=== PATIENT | female | born 2005 | race Caucasian/White ===

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

== ENCOUNTER → 2024-02-11 | Outpatient (CLI) | payer OTHER, SELFPAY ==
[2024-02-11 12:06] LABS: Basophil# 0.03 X10^3/uL; Basophil% 0.5 % (0-1); Eosinophil# 0.06 X10^3/uL; Eosinophils% 0.9 % (0-5); Hematocrit 45.2 % (37-47); Hemoglobin 14.7 g/dL (12.0-15.0); Lymphocyte % 25.3 % (19-41); Mean Corp Hgb Conc 32.5 g/dL (32-36); Mean Corpuscular Hgb 29.5 pg (27.0-32.0); Mean Corpuscular Volume 90.8 fL (81-99); Mean Platelet Vol. 9.8 fl (6.2-12.0); Monocyte% 9.5 % (0-10); NRBC Flagged by Analyzer 0 % (0-5); Neutrophil % 63.3 % (47-70); Platelet Count 329 K/mm3 (150-450); RBC Distribution Width CV 13.2 % (11.6-14.6); Red Blood Count 4.98 M/mm3 (4.2-5.4); White Blood Count 6.3 K/mm3 (4.4-11.0)
[2024-02-11 12:37] LABS: ALB/GLOB Ratio 0.8 RATIO (0.9-2.4); AST(SGOT) 19 U/L (15-37); Alanine Aminotransfer ALT/SGPT 21 U/L (13-56); Albumin, Serum 3.6 g/dL (3.2-5.0); Alkaline Phosphatase 132 U/L (45-117); Anion Gap 3 (5-15); BUN 10 mg/dL (7-18); BUN/Creat Ratio 13.4 RATIO (10-20); Calcium,Total 9.1 mg/dL (8.5-10.1); Chloride 112 mmol/L (98-107); Creatinine, Serum 0.75 mg/dL (0.55-1.02); EST Glomerular Filtration Rate 105 mL/min (>60); Est Glom Filt Rate - Afr Amer 128 mL/min (>60); Globulin 4.3 g/dL (2.2-4.2); Glucose 102 mg/dL (74-106); Luteinizing Hormone 13.3 mIU/mL; Potassium 4.2 mmol/L (3.5-5.1); Protein, Total 7.9 g/dL (6.4-8.2); Sodium Level 142 mmol/L (136-145); Thyroid Stim Hormone (TSH) 1.28 uIU/mL (0.358-3.74)
[2024-02-11 13:41] LABS: hCG Titer Quant., Serum < 1 mIU/mL (1-3)
== END | disposition home or self-care (01) ==
LOC: BIMLAB 11:32
PROVIDERS: PCP Internal Medicine; Referring Provider Internal Medicine; Visit Provider Internal Medicine
DX: N91.2 Amenorrhea, unspecified (principal)
CPT/HCPCS: 36415; 80053; 83001; 83002; 84146; 84403; 84443; 84702; 84703; 85025

== ENCOUNTER → 2024-03-31 | Outpatient (CLI) | payer OTHER, SELFPAY | END | disposition home or self-care (01) | PROVIDERS: PCP Internal Medicine; Referring Provider Nurse Practitioner Women's Health; Visit Provider Nurse Practitioner Women's Health | DX: N91.2 Amenorrhea, unspecified (principal) | CPT/HCPCS: 87491; 87591 ==

== ENCOUNTER → 2024-04-10 | Outpatient (CLI) | payer OTHER, SELFPAY ==
[2024-04-10 13:00] LABS: Cholesterol 183 mg/dL (200); High Density Lipoprotein 36 mg/dL; Triglycerides 175 mg/dL; Very Low Density Lipoprotein 35 mg/dL (5-40)
== END | disposition home or self-care (01) ==
LOC: LAB 11:47
PROVIDERS: PCP Internal Medicine; Referring Provider Nurse Practitioner Women's Health; Visit Provider Nurse Practitioner Women's Health
DX: N91.5 Oligomenorrhea, unspecified (principal)
CPT/HCPCS: 36415; 80061; 83036

== ENCOUNTER 2024-11-29 03:44 | Emergency (ER) | payer OTHER, SELFPAY ==
[2024-11-29 03:44] VITALS: BP 137/77; PULSE 89; RESP 18; TEMP 36.6; O2SAT 99; BMI 42.3
[2024-11-29 03:59] LABS: Absolute Lymphocyte Count 2.38 X10^3/uL (0.83-4.51); Absolute Neutrophil Count 10.2 X10^3/uL (2.0-7.7); Basophil# 0.04 X10^3/uL; Basophil% 0.3 % (0-1); Eosinophil# 0.13 X10^3/uL; Eosinophils% 0.9 % (0-5); Hematocrit 40.6 % (37-47); Hemoglobin 13.6 g/dL (12.0-15.0); Lymphocyte # 2.38 X10^3/ul (0.83-4.51); Lymphocyte % 17.3 % (19-41); Mean Corp Hgb Conc 33.5 g/dL (32-36); Mean Corpuscular Hgb 29.8 pg (27.0-32.0); Mean Corpuscular Volume 88.8 fL (81-99); Mean Platelet Vol. 9.8 fl (6.2-12.0); Monocyte# 0.98 X10^3/uL; Monocyte% 7.1 % (0-10); NRBC Flagged by Analyzer 0 % (0-5); Neutrophil # 10.17 X10^3/uL (2.7-7.7); Platelet Count 321 K/mm3 (150-450); RBC Distribution Width CV 12.9 % (11.6-14.6); Red Blood Count 4.57 M/mm3 (4.2-5.4); White Blood Count 13.8 K/mm3 (4.4-11.0)
[2024-11-29 04:22] LABS: ALB/GLOB Ratio 0.8 RATIO (0.9-2.4); AST(SGOT) 32 U/L (15-37); Alanine Aminotransfer ALT/SGPT 30 U/L (13-56); Albumin, Serum 3.2 g/dL (3.2-5.0); Alkaline Phosphatase 111 U/L (45-117); Anion Gap 5 (5-15); BUN 11 mg/dL (7-18); BUN/Creat Ratio 12.2 RATIO (10-20); Calcium,Total 9.3 mg/dL (8.5-10.1); Chloride 108 mmol/L (98-107); EST Glomerular Filtration Rate 84 mL/min (>60); Est Glom Filt Rate - Afr Amer 102 mL/min (>60); Estimated Creatinine Clearance 126.43 ml/min; Glucose 118 mg/dL (74-106); Lipase 39 U/L (13-75); Potassium 3.7 mmol/L (3.5-5.1); Protein, Total 7.2 g/dL (6.4-8.2); Sodium Level 139 mmol/L (136-145)
[2024-11-29 04:38] LABS: Mucous, Urine 0 SEEN /hpf (<or=2+); Red Blood Cells-Urine 0 SEEN /hpf (0-5); White Blood Cells 0 SEEN /hpf (0-5)
[2024-11-29] MEDS: Ondansetron 4 MG/2 ML Vial IV (04:38)
[2024-11-29] MEDS: Ketorolac 15 MG/ML Vial IV (04:39)
[2024-11-29] MEDS: 0.9% Normal Saline (1000mL) 1,000 ML 999 ML IV (04:39)
[2024-11-29 05:00] LABS: Color, Urine Yellow (Yellow); Glucose, Dipstick Normal (Normal); Ketone-Dipstick Negative (Negative); Leukocyte Esterase-Dipstick Negative /ul (Negative); Nitrite-Dipstick Negative (Negative); Occult Blood-Urine Negative /ul (Negative); Protein-Dipstick 15 mg/dl (Negative); Specific Gravity, Urine 1.025 (1.002-1.030); Urine Bilirubin Dipstick Negative (Negative); Urine Clarity Clear (Clear); Urine Urobilinogen 4 mg/dl (Normal)
[2024-11-29 05:07] LABS: Bacteria 2+ /hpf (None Seen); Internal QC Validated? YES +Cl - CLEAR BKGD; Pregnancy, Urine Negative Negative; Squamous Epithelial Cells - UA 0-5 SEEN /hpf (5-10)
--- NOTE | 2024-11-29 05:10 | EDS_ITS ---
HPI HPI - GI History of Present Illness Chief Complaint: Abd Pain Informant: patient and parent Narrative Narrative: Patient is a 19-year-old female with history of irregular menstrual cycles and possible polycystic ovarian syndrome presenting with sudden onset of abdominal pain, nausea and vomiting. Patient is woke up from sleep around 2 AM. Pain is in her epigastric region. She denies any radiation. Denies any aggravating or alleviating factors. Notes that she had pepperoni pretzel with isabellaa for dinner around 6 PM. States she felt okay when she went to bed last night. She had normal bowel movement yesterday. She has similar episode 1 week ago with similar presentation of sudden onset of pain that woke her up from sleep. That night she had cheesy bread and potato skins. Mother is concerned for gallstones as patient's brother had his gallbladder removed at age 15 and ever the family said to have the gallbladders removed. No report of any fevers. No other complaints or concerns reported at this time. Patient suspicion. About a month ago. She does not report any concern for . No history of any abdominal surgeries. [facility] Medical History Wears contact lenses Migraine headache Asthma Non-smoker Knee pain Home Medications ?Medication ?Instructions ?Recorded ?Last Taken ?Type norgestimate 0.25 mg-ethinyl 1 tab PO QDAY #84 tabs 06/30/24 Unknown Rx estradiol 35 mcg tablet (Sprintec (28)) Allergy/AdvReac Type Severity Reaction Status Date / Time No Known Allergies Allergy Verified 11/29/24 03:45 Family History Mother High cholesterol Brother Asthma Allergies Severe allergy Grandmother Osteoporosis Heart disease Hypertension Myocardial infarction Colon cancer Amyloidosis Multiple myeloma Grandfather Heart disease High cholesterol Kidney disease CVA (cerebral vascular accident) Paraganglioma Cancer of cranial nerves Skin cancer Grandmother Breast cancer Cancer skin Osteoporosis Surgical History H/O right knee surgery Hx of tympanostomy tubes History of tonsillectomy and adenoidectomy History of repair of anterior cruciate ligament of left knee ear drum reconstruction Social History adopted: No household members: family current occupational status: employed 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[employer] history of recent travel: No Smoking Status: Never smoker Electronic Cigarette Use: not used alcohol intake: never substance use type: does not use what type of physical activity do you participate in: walking frequency: 1-2 times per week seatbelt use: always do you feel safe at home: Yes ROS ROS ED Constitutional Constitutional ED: Denies chills or fever(s) Respiratory/Chest Respiratory/Chest: Denies cough or dyspnea Gastrointestinal Gastrointestinal: Reports abdominal pain, nausea and vomiting; Denies constipation or diarrhea Genitourinary Genitourinary ED: Denies dysuria or hematuria Musculoskeletal Musculoskeletal: Denies arthralgias, back pain or myalgias Integumentary Denies rash Hematologic/Lymphatic Hematologic/Lymphatic: Denies easy bleeding or easy bruising EXAM Physical Exam Const Vital Signs: 11/29/24 03:44 11/29/24 05:44 11/29/24 07:15 Temperature 98 F Temperature Source Oral Pulse Rate 89 74 75 Respiratory Rate 18 18 24 H Blood Pressure 137/77 H 104/62 105/64 Blood Pressure Mean 97 76 77 Pulse Ox 99 97 100 Oxygen Delivery Method Room Air Room Air Room Air Positive well nourished and well developed General Appearance ED: well developed and NAD; Negative for pallor HEENT Reports moist mucous membranes Neck supple Resp normal respiratory effort and clear to auscultation bilaterally Cardio regular rhythm GI Inspection: Negative for abdominal distention Auscultation: normoactive bowel sounds Palpation: soft and tender epigastric, LUQ and Wilder's sign; Negative for guarding or rigid Back/Spine no CVA tenderness Neuro Sensorium / Orientation: alert Motor Exam: Negative for general weakness Psych mental status grossly normal and thought process normal Mood & Affect: tearful Skin no wounds General Skin Exam: Negative for jaundice or pallor MDM MDM MDM Narrative Medical decision making narrative: Patient is evaluated for sudden onset of epigastric/right upper quadrant abdominal pain with associated nausea and vomiting. Upon arrival patient is normal vital signs. She appears nontoxic but uncomfortable. Patient given IV fluids, Toradol and Zofran for symptoms. She does have a positive Wilder sign. CBC shows a leukocytosis with white blood cell count of 13.8 but otherwise normal. CMP largely normal as well as lipase. Urinalysis not consistent with infection or other acute process. test is negative. Bedside ultrasound from a myself does show gallstones but do not appreciate pericholecystic fluid or gallbladder wall thickening. She does have a positive sonographic Wilder sign for me. Will order formal right upper quadrant ultrasound. Differential includes biliary colic, acute cholecystitis and gastritis. Given that she has normal bilirubin and normal liver enzymes lower suspicion for choledocholithiasis. Patient presented to oncoming physician pending formal ultrasound results and repeat evaluation. Lab Data Attestation: I reviewed the patient's lab results. Labs: Laboratory Results - last 24 hr 11/29/24 11/29/24 03:54 04:34 WBC 13.8 H RBC 4.57 Hgb 13.6 Hct 40.6 MCV 88.8 MCH 29.8 MCHC 33.5 RDW Std Deviation 42.0 RDW Coeff of Maggi 12.9 Plt Count 321 MPV 9.8 Immature Gran % (Auto) 0.400 Neut % (Auto) 74.0 H Lymph % (Auto) 17.3 L [place] % (Auto) 7.1 Eos % (Auto) 0.9 Baso % (Auto) 0.3 Absolute Neuts (auto) 10.2 H Absolute Lymphs (auto) 2.38 Nucleated RBC % 0 Sodium 139 Potassium 3.7 Chloride 108 H Carbon Dioxide 26.0 Anion Gap 5 BUN 11 Creatinine 0.90 Estim Creat Clear Calc 126.43 Est GFR (MDRD) Af Amer 102 Est GFR (MDRD) Non-Af 84 BUN/Creatinine Ratio 12.2 Glucose 118 H Calcium 9.3 Total Bilirubin 0.50 AST 32 ALT 30 Alkaline Phosphatase 111 Total Protein 7.2 Albumin 3.2 Globulin 4.0 Albumin/Globulin Ratio 0.8 L Lipase 39 Urine Color Yellow Urine Clarity Clear Urine pH 6.0 Ur Specific [place] 1.025 Urine Protein 15 H Urine Glucose (UA) Normal Urine Ketones Negative Urine Occult Blood Negative Urine Nitrite Negative Urine Bilirubin Negative Urine Urobilinogen 4 H Ur Leukocyte Esterase Negative Urine RBC 0 SEEN Urine WBC 0 SEEN Ur Squamous Epith Cells 0-5 SEEN Urine Bacteria 2+ Urine Mucus 0 SEEN Urine Test Negative Discharge Plan Triage Chief Complaint: Abd Pain ED Provider: Liliya Perez Dx/Rx/DC Orders Clinical Impression: Right upper quadrant abdominal pain, Nausea & vomiting Prescriptions: No Action norgestimate-ethinyl estradiol [Sprintec (28)] 0.25-35 mg-mcg tablet 1 tab PO QDAY Qty: 84 4RF Primary Care Provider: Teresa Liriano Referrals: Teresa Liriano MD [Primary Care Provider] - Print Language: Dominican
--- NOTE | 2024-11-29 05:10 | US_ITS ---
INDICATION: RUQ pain EXAMINATION: Ultrasound US Abdomen Limited (quadrant) TECHNIQUE: Malagon scale and color doppler imaging was performed of the right upper quadrant. COMPARISON: CT scan of the abdomen and pelvis of 06/24/2009 FINDINGS: LIVER: There is normal echotexture and borderline size measuring about 17 cm in length. The portal vein is patent with normal hepatopedal flow.. No focal hepatic lesion. There is no free fluid. GALLBLADDER AND BILIARY TREE: Multiple small gallstones are seen. Normal gallbladder wall measuring 2 mm. The proximal common bile duct measures 5 mm, which is within normal limits for the patient''s age. Sonographic Wilder''s sign: Negative. PANCREAS: No focal abnormality is demonstrated in the pancreas as visualized on this examination. No pancreatic ductal dilatation. RIGHT KIDNEY: The right kidney measures 12.6 cm. The renal cortex measures 1.8 cm. No evidence of hydronephrosis. US/Gallbladder IMPRESSION: Multiple small gallstones without evidence of gallbladder wall thickening or biliary dilatation. Electronically Signed: Lavelle Vilchis MD at 8:59 EST ,
[2024-11-29 05:44] VITALS: BP 104/62; PULSE 74; RESP 18; O2SAT 97
[2024-11-29 07:15] VITALS: BP 105/64; PULSE 75; RESP 24; O2SAT 100
[2024-11-29 08:51] VITALS: BP 106/66; PULSE 74; RESP 17; O2SAT 98
[2024-11-29 10:00] VITALS: BP 102/46; PULSE 70; RESP 12; O2SAT 99
[2024-11-29 10:31] VITALS: BP 95/54; PULSE 65; RESP 20; TEMP 36.6; O2SAT 99
== END 2024-11-29 10:38 | disposition home or self-care (01) ==
PROVIDERS: Emergency Provider Emergency Medicine; PCP Internal Medicine; Visit Provider Emergency Medicine
DX: R10.11 Right upper quadrant pain (principal); R11.2 Nausea with vomiting, unspecified
CPT/HCPCS: 76705; 80053; 81001; 81025; 83690; 85025; 96361; 96374; 96375; 99283; A4216; J2405

== ENCOUNTER 2024-12-15 09:54 | Day surgery (SDC) | payer OTHER, SELFPAY ==
[2024-12-15] VITALS (8 sets, daily range): BP systolic 86–120; BP diastolic 53–82; PULSE 73–91; RESP 16–22; TEMP 36.1–36.6; O2SAT 92–100; BMI 41.6
[2024-12-15 10:34] LABS: Internal QC Validated? YES +Cl - CLEAR BKGD; Pregnancy, Urine Negative Negative
--- NOTE | 2024-12-15 11:00 | IMM_PTH ---
PATIENT: AVEL HANNA LOC: EN U#:[id number] AGE/SX: 19/F ROOM: RE12/15/[address]: Dr. Juan Pablo Razo MD : 2005 BED: DIS: 12/15/2024 SPEC #: [id number] RECD: 12/16/24 09:02 STATUS: DEJAN REIvette #: [id number] NIDA: 12/15/24 11:[address]: Juan Pablo Razo DEPT: IMMUNOHISTOCHEMISTRY RECD BY: Conner Velasco ENTERED: 12/16/24 09:02 SP TYPE: IMMUNO OTHR DR: Dr. Teresa Liriano MD Tissues: A - Gastric mucous membrane Procedures: H Pylori (initial) PHYSICIAN & INSTITUTION [place] [address] SPECIMEN INFORMATION: Tissue Source: A- Antral biopsy Clinical Info: Epigastric abdominal pain, gallstones Specimen Number: [id number] CPT code: 31038 METHODOLOGY: Deparaffinized sections of prefer/formalin-fixed tissue or PAP/DQ stained slides are incubated with monoclonal/polyclonal antibodies/oligonucleotide probes. Localization is made via biotin free immunoperoxidase method. Appropriate controls are performed and reacted as expected. Results on target cell population are indicated in the following table: RESULTS: ANTIBODY / CLONE RESULT Block A H Pylori (polyclonal) negative These tests were developed and their performance characteristics determined by [facility]. They may not have been cleared or approved by the U.S. Food and Drug Administration. The FDA has determined that such clearance or approval is not necessary. The above immunohistochemical/dualISH markers are ordered and reviewed by the Pathologist. INTERPRETATION: A. Antrum, biopsy: Negative for Helicobacter pylori organisms. 12/17/2024
--- NOTE | 2024-12-15 11:00 | EGD_PTH ---
PATIENT: AVEL HANNA LOC: EN U#:[id number] AGE/SX: 19/F ROOM: RE12/15/[address]: Dr. Juan Pablo Razo MD : 2005 BED: DIS: 12/15/2024 SPEC #: [id number] RECD: 12/15/24 16:49 STATUS: DEJAN ALICIA #: [id number] NIDA: 12/15/24 11:[address]: Juan Pablo Razo DEPT: SURGICAL PATHOLOGY RECD BY: Alejandrina You ENTERED: 12/16/24 10:14 SP TYPE: EGD BIOPSY SARA DR: Dr. Teresa Liriano MD Tissues: A - Gastric mucous membrane B - COLON BIOPSY C - COLON BIOPSY Procedures: Surgery Specimen Level IV HEADER OPERATION: EGD with biopsy PRE-OP DIAGNOSIS: Epigastric abdominal pain, gallstones TISSUE SUBMITTED: A- Antral biopsy, B- Greater curvature biopsy, C- Prepyloric nodule biopsy MICROSCOPIC DIAGNOSIS A. Antrum, biopsy: Reactive gastropathy with focal chronic inflammation. See comment. B. Greater curvature, biopsy: Gastric mucosa with minimal chronic inflammation. C. Prepyloric nodule, biopsy: Reactive gastropathy with minimal chronic inflammation and focal hyperplastic changes. MEGAN 12/17/2024 COMMENT A, The results of immunohistochemistry for Helicobacter pylori will be reported separately ([id number]). MICROSCOPIC DESCRIPTION Slides are reviewed. GROSS DESCRIPTION A. Received in fixative is one container labeled with the patient's name and designated Antral biopsy. The specimen consists of one irregular fragment of light le soft tissue that measures 0.7 x 0.2 x 0.2 cm. The specimen is totally submitted in one cassette. B. Received in fixative is one container labeled with the patient's name and designated Greater curvature biopsy. The specimen consists of two irregular fragments of light le soft tissue that in aggregate measure 0.6 x 0.4 x 0.2 cm. The specimen is totally submitted in one cassette. C. Received in fixative is one container labeled with the patient's name and designated Prepyloric nodule biopsy. The specimen consists of one irregular fragment of light le soft tissue that measures 0.7 x 0.3 x 0.1 cm. The specimen is totally submitted in one cassette. 12/16/2024 TC:3 CPT:89328y9
--- NOTE | 2024-12-15 11:00 | PCM.PRE.AN2 ---
ASA Classification* ASA Classification ASA Classification: 3 Assessment & Plan Anesthesia* Anesthesia Assessment Anesthesia Assessment: Discussed sedation and/or anesthesia options, risks, benefits, and alternatives with patient/parents/legal guardian/POA. Questions invited. The patient/parents/legal guardian/POA seems to understand and agrees to proceed with anesthesia plan. Reviewed the physical assessment, medical history, allergy history and patient home medications list prior to surgery/procedure/anesthetic and documented any changes. Performed airway and anesthesia risk assessments. Anesthesia Type Anesthesia Type: MAC History Source History Obtained from:: Patient, Chart and Parent/ Guardian Anesthesia Focused Assessment* Temperature: 98 F Pulse Rate: 91 Blood Pressure: 120/82 Respiratory Rate: 16 Pulse Ox: 100 Oxygen Delivery Method: Room Air Airway Assessment Mouth opens: 2 cm Mallampati Score: II Teeth Condition: Intact Neck Range of motion (ROM): Full ROM Focused Labs Anesthesia Preop lab: CBC WBC 13.8 K/mm3 (4.4-11.0) H 11/29/24 03:54 RBC 4.57 M/mm3 (4.2-5.4) 11/29/24 03:54 Hgb 13.6 g/dL (12.0-15.0) 11/29/24 03:54 Hct 40.6 % (37-47) 11/29/24 03:54 Plt Count 321 K/mm3 (150-450) 11/29/24 03:54 CHEMISTRY Potassium 3.7 mmol/L (3.5-5.1) 11/29/24 03:54 Sodium 139 mmol/L (136-145) 11/29/24 03:54 BUN 11 mg/dL (7-18) 11/29/24 03:54 Creatinine 0.90 mg/dL (0.55-1.02) 11/29/24 03:54 Glucose 118 mg/dL (74-106) H 11/29/24 03:54 TSH 1.28 uIU/mL (0.358-3.74) 02/11/24 11:32 COAG HCG, Quant < 1 mIU/mL (1-3) 02/11/24 11:32 Urine Test Negative Negative 12/15/24 10:14 [facility] Clinic Negative 03/31/24 15:04 Pre-Assessment Diagnosis/Proposed Procedure Planned Operative Procedure(s): EGD Anesthesia History Anesthesia History - retail banking manager: Anesthesia History - retail banking manager Hx Hospitalization No 12/10/24 14:08 Any Problems With Anesthesia No 12/10/24 14:08 Cholinesterase deficiency No 12/10/24 14:08 You/Your Family Experience No 12/10/24 14:08 fever (hyperthermia) with Relationship Recent Exposure to Contagious No 12/15/24 10:21 Disease Does patient have nerve No 12/10/24 14:08 stimulator Patient instructed to have device shut off --Does patient have Pacemaker No 12/15/24 10:21 or ICD? When Was Last Pacemaker Check QUESTION #4 FULL TEXT: You/Your Family Experience fever (hyperthermia) with Anesthesia Last Oral Intake Last Oral intake: Last Oral Intake NPO since 13:00 12/15/24 10:21 Meds taken in AM with sips of water? Meds patient instructed to take am of surgery PONV PONV - retail banking manager: PONV - retail banking manager Female Yes 12/10/24 14:08 HX of Motion Sickness No 12/10/24 14:08 HX of N/V After Surgery Yes 12/10/24 14:08 Non-Smoker Yes 12/10/24 14:08 Duration of Surgery greater No 12/10/24 14:08 than 60 minutes Number of Risk Factors 3 12/10/24 14:08 PONV Score Moderate Risk 12/10/24 14:08 Height & Weight Height & Weight: Anesthesia: Height & Weight Height 5 ft 5 in 12/15/24 10:21 Weight: 113.6 kg 12/15/24 10:21 Body Mass Index (BMI) 41.6 12/15/24 10:21 Respiratory Assessment Respiratory Assessment - retail banking manager: Respiratory Tract Infection Hx - retail banking manager Hx Respiratory Tract Infection No 12/10/24 14:08 STOP Sleep Apnea STOP Sleep Apnea - retail banking manager: STOP Sleep Apnea - retail banking manager Hx Hypertension No 12/10/24 14:08 Hx Sleep Apnea No 12/10/24 14:08 CPAP BIPAP Do you snore loudly (louder No 12/10/24 14:08 than talking or can be heard Do you often feel tired/ No 12/10/24 14:08 fatigued/ sleepy during daytime? Has anyone observed you stop No 12/10/24 14:08 breathing during sleep? STOP Results Negative 12/10/24 14:08 QUESTION #5 FULL TEXT : Do you snore loudly (louder than talking or can be heard through closed doors)? 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 Specify any problems Hx of Preganancy in last 3 N/A 12/10/24 14:08 Months Nurse Filling Out Transfusion NBUCHER 12/10/24 14:08 & Questions: Date: 12/10/24 12/10/24 14:08 Time: 14:08 12/10/24 14:08 Patient unable to answer at this time (ie. confused, unrespo /Reproduction History /Reproductive History - retail banking manager: /Reproductive Hx- retail banking manager Hx Now Gestational Age (in weeks): EDC: Hx Hx Para Hx Section SAB No 12/10/24 14:08 PFSH Medical History Wears glasses Wears contact lenses Migraine headache Asthma Non-smoker Knee pain Home Medications ?Medication ?Instructions ?Recorded ?Last Taken ?Type norgestimate 0.25 mg-ethinyl 1 tab PO QDAY #84 tabs 06/30/24 Unknown Rx estradiol 35 mcg tablet (Sprintec (28)) Allergy/AdvReac Type Severity Reaction Status Date / Time No Known Allergies Allergy Verified 12/15/24 10:21 Family History Mother High cholesterol Brother Asthma Allergies Severe allergy Grandmother Osteoporosis Heart disease Hypertension Myocardial infarction Colon cancer Amyloidosis Multiple myeloma Grandfather Heart disease High cholesterol Kidney disease CVA (cerebral vascular accident) Paraganglioma Cancer of cranial nerves Skin cancer Grandmother Breast cancer Cancer skin Osteoporosis Surgical History History of left knee surgery H/O right knee surgery Hx of tympanostomy tubes History of tonsillectomy and adenoidectomy History of repair of anterior cruciate ligament of left knee ear drum reconstruction Social History adopted: No household members: family current occupational status: employed 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
--- NOTE | 2024-12-15 11:19 | PCM.HP.BLA ---
History and Physical Date of Admission: 12/15/24 Date of Service: 12/10/24 MR#: [id number] Acct: [id number] Name: AVEL LEIVA Rep #: [id number] : 2005 Provider: Dr. Juan Pablo Razo MD Age/Sex: 19/F Location: [facility] Status: Signed Intake Vital Signs 11/29/2502:44 12/10/2509:28 Height 5 ft 5 in 5 ft 5 in Weight: 251 lb BMI 41.8 BP 110/71 Blood Pressure Location Rt brachial Position Sitting Respiration 17 Pulse 73 Pulse Source Monitor Pulse Oximetry (%) 93 Oxygen Delivery Method room air Intake Visit Reasons: GALLSTONES Chief Complaint: gallstones Is patient in pain?: No Allergies No Known Allergies Allergy (Verified 12/10/24 10:29) Medications ?Medication ?Instructions ?Recorded ?Confirmed ?Type norgestimate 0.25 mg-ethinyl 1 tab PO QDAY #84 tabs 06/30/24 12/10/24 Rx estradiol 35 mcg tablet (Sprintec (28)) PFSH Medical History Wears contact lenses Migraine headache Asthma Non-smoker Knee pain Surgical History H/O right knee surgery Hx of tympanostomy tubes History of tonsillectomy and adenoidectomy History of repair of anterior cruciate ligament of left knee ear drum reconstruction Family History Mother High cholesterolBrother Asthma Allergies Severe allergyGrandmother Osteoporosis Heart disease Hypertension Myocardial infarction Colon cancer Amyloidosis Multiple myelomaGrandfather Heart disease High cholesterol Kidney disease CVA (cerebral vascular accident) Paraganglioma Cancer of cranial nerves Skin cancerGrandmother Breast cancer Cancer skin Osteoporosis Social History adopted: No household members: family current occupational status: employed 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 They arrive to today's visit with their mother. Miss Leiva shares that she has had a couple of episodes of right upper quadrant pain with pain so bad that it led to subsequent vomiting in the last 1 month. She describes her vomitus as both bilious and containing food. She estimates that is approximately 12 hours after eating that she experiences the symptoms and it tends to awaken her out of sleep. She adds that the suspected food trigger is marinara sauce with cheesy bread. She denies tasting any acid upon awakening and denies any experience of heartburn. She does note that she generally sleeps rather propped up on a number of pillows at night. Her above symptoms have not led to any weight change. She also denies any bloating sensation. Patient underwent laboratory testing and right upper quadrant ultrasound with her ER evaluation. Laboratory testing revealed a mild leukocytosis but liver function testing is within normal limits. Ultrasound showed evidence of cholelithiasis but no other morphologic evidence of cholecystitis. Patient's mother asked whether or not a history of cholecystectomy in the family poses a significant risk for Miss Leiva to also have cholecystitis as she mentions her son and she herself have required cholecystectomy in the past. ROS General General: No weight change, appetite, fatigue, colon cancer, breast cancer or weakness HEENT HEENT: No difficulty swallowing, eye injury, eye surgery, swollen glands or hoarseness Endo Endocrine: No thyroid disease, diabetes mellitus, thyroid cancer, Hair loss, heat intolerance or cold intolerance Skin Skin: No rash or changing moles Musc Musculoskeletal: No back problems, arthritis, rheumatoid arthritis, gout or joint pain Cardio Cardiovascular: No murmur, pacemaker, heart disease, atrial fibrillation, high blood pressure, heart attack, heart stent, palpitations, shortness of breat with exertion or chest pain Psych Psychiatric: No depression, anxiety or hearing voices Resp Respiratory: No shortness of breath, No sleep apnea, No cough, No COPD, No asthma, No emphysema and No wheezing Gastro Gastrointestinal: Yes abdominal pain, Yes nausea or vomiting, No diarrhea, No constipation, No blood in stool, No acid reflux, No hemorrhoids, No ulcers, Yes gallbladder problem and No black,tarry stools Jim Hematologic: No blood thinners, No blood disorders, No bleeding, No anemia and No blood clots Neuro Neurologic: No system reviewed and no additional complaints, except as documented, No as per HPI, No abnormal gait, No abnormal hearing, No abnormal movements, No abnormal speech, No behavioral changes, No burning sensations, No confusion, No convulsions, No disequilibrium, No dizziness, No localized weakness, No frequent falls, No headache(s), No lack of coordination, No loss of vision, No memory loss, No numbness, No other visual disturbances, No radicular pain, No restless legs, No sensory deficit, No syncope, No tingling, No tremor(s), No weakness and No other Exam Const General: cooperative and anxious Nutritional Appearance: obese Orientation: alert, awake and oriented x3 GI Inspection: obesity Palpation: soft Other: Patient is nondistended. Tenderness is elicited with palpation of the epigastrium and right upper quadrant but patient repeatedly confirms that her epigastric tenderness is more significant than the right upper quadrant. Negative Wilder sign. Assessment and Plan Assessment and Plan (1) Gallstones: Status: Acute Comment: Patient is a 19-year-old female who presents for consultation related to recent finding of gallstones in the setting of acute onset epigastric pain that is associated with nausea and vomiting. Careful history is elicited from patient and she describes pain awakening her many hours postingestion of marinara sauce. On exam patient's primary tenderness is found in the epigastrium and lesser so in the right upper quadrant. Her right upper quadrant ultrasound was reviewed and found gallstones but no other evidence of gallbladder inflammation-gallbladder wall thickening, sonographic Wilder sign, or pericholecystic fluid.... Thus based on patient's history describing marinara sauce as a food trigger, duration from eating for onset of symptoms-and her abdominal exam I expressed some skepticism that her symptoms are attributable to her gallbladder. Instead, I find it somewhat more likely that her symptoms may be related to an upper GI source and recommend that we proceed for an EGD exam prior to considering cholecystectomy. Hand drawings were made of the relevant anatomy to illustrate my perception based on timing and anatomic relationships. Patient and her mother were receptive of this recommendation and we will proceed with scheduling at her first mutual availability. Plan: ? EGD exam to assess for possible gastritis, peptic ulcer disease, Helicobacter pylori, etc. (2) Epigastric abdominal pain: Status: Acute Comment: Both patient's present tenderness on exam and tenderness in the ER (as reported by ER attending who evaluated 11 days ago) was epigastric in character rather than right upper quadrant. With this consistency I am recommending proceeding with the EGD before further consideration of cholecystectomy. I have examined the patient and the H&P has been reviewed. There are no clinical changes since date of exam. Patient denies any further symptoms of GI discomfort since our visit last week. Overview of the procedure was given and neither she nor her mother have any further questions. Therefore we will proceed to endoscopy suite for EGD as planned.
--- NOTE | 2024-12-15 11:59 | OP.CCLET_ITS ---
12/15/2024 Teresa Liriano Md Re : Upper GI endoscopy procedure for Sofya Leiva Dear Deandra This procedure was performed on Sunday, December 15, 2024. My impressions and recommendations are as follows: Impressions : - Normal examined duodenum. No specimens collected. - A single mucosal papule (nodule) found in the stomach. Biopsied. - Erythematous mucosa in the antrum. Biopsied. - Gastritis. Biopsied. - Z-line regular, 36 cm from the incisors. No specimens collected. - Normal esophagus. Recommendations : - Discharge patient to home (via wheelchair). - Resume regular diet today. - No aspirin, ibuprofen, naproxen, or other non-steroidal anti-inflammatory drugs after biopsy. - Await pathology results. - Telephone my office for pathology results in 1 week. My findings are described in the full procedure note, which is enclosed. If I can be of further assistance, please feel free to contact me at Doctor phone number(s): , Work: . Sincerely, Juan Pablo Razo MD 12/15/2024 11:59:02 AM This report has been signed electronically.
--- NOTE | 2024-12-15 11:59 | OP.EGD_ITS ---
Patient Name: Sofya Leiva Procedure Date: 12/15/2024 10:50 AM Date of : 2005 Age: 19 Procedure: Upper GI endoscopy Indications: Epigastric abdominal pain, Abdominal pain in the right upper quadrant, Nausea with vomiting Providers: Juan Pablo Razo MD Referring MD: Teresa Liriano Md Medicines: See the Anesthesia note for documentation of the administered medications Patient Profile: Refer to note in patient chart for documentation of history and physical. Complications: No immediate complications. Estimated blood loss: Minimal. Procedure: Pre-Anesthesia Assessment: - The heart rate, respiratory rate, oxygen saturations, blood pressure, adequacy of pulmonary ventilation, and response to care were monitored throughout the procedure. After obtaining informed consent, the endoscope was passed under direct vision. Throughout the procedure, the patient's blood pressure, pulse, and oxygen saturations were monitored continuously. The gastroscope was introduced through the mouth, and advanced to the third part of duodenum. The upper GI endoscopy was accomplished without difficulty. The patient tolerated the procedure well. Scope In: 11:36:56 AM Scope Out: 11:48:09 AM Total Procedure Duration Time 0 hours 11 minutes 13 seconds Findings: The examined duodenum was normal. No biopsies or other specimens were collected for this exam. A single 5 mm mucosal papule (nodule) with no bleeding and no stigmata of recent bleeding was found in the prepyloric region of the stomach. Biopsies were taken with a cold forceps for histology. Estimated blood loss was minimal. Diffuse mildly erythematous mucosa without bleeding was found in the gastric antrum. Biopsies were taken with a cold forceps for histology. Estimated blood loss was minimal. Diffuse mild inflammation characterized by erythema was found on the greater curvature of the stomach. Biopsies were taken with a cold forceps for histology. Estimated blood loss was minimal. The cardia and gastric fundus were normal on retroflexion. The Z-line was regular and was found 36 cm from the incisors. No biopsies or other specimens were collected for this exam. The esophagus was normal. Impression: - Normal examined duodenum. No specimens collected. - A single mucosal papule (nodule) found in the stomach. Biopsied. - Erythematous mucosa in the antrum. Biopsied. - Gastritis. Biopsied. - Z-line regular, 36 cm from the incisors. No specimens collected. - Normal esophagus. Recommendation: - Discharge patient to home (via wheelchair). - Resume regular diet today. - No aspirin, ibuprofen, naproxen, or other non-steroidal anti-inflammatory drugs after biopsy. - Await pathology results. - Telephone my office for pathology results in 1 week. Procedure Code(s): --- Professional --- 06255, Esophagogastroduodenoscopy, flexible, transoral; with biopsy, single or multiple Diagnosis Code(s): --- Professional --- K31.89, Other diseases of stomach and duodenum K29.70, Gastritis, unspecified, without bleeding R10.13, Epigastric pain R10.11, Right upper quadrant pain R11.2, Nausea with vomiting, unspecified CPT copyright 202 [employer]. All rights reserved. The codes documented in this report are preliminary and upon non licensed operator review may be revised to meet current compliance requirements. Juan Pablo Razo MD 12/15/2024 11:59:02 AM This report has been signed electronically. Number of Addenda: 0 Note Initiated On: 12/15/2024 10:50 AM
--- NOTE | 2024-12-15 12:02 | PCM.POST.ANE ---
Anesthesia: Postop Eval I Current Vital Signs Temperature: 97 F Pulse Rate: 88 Blood Pressure: 86/53 Respiratory Rate: 22 Pulse Ox: 94 Oxygen Delivery Method: Room Air Assessment Airway patent: Yes Spontaneous unlabored respirations: Yes Mental status: Asleep nausea: No Vomiting: No Anesthesia Complication: No Fluid Hydration Crystalloid volume administer (ml): 60 Total IV fluid infused: 60 Progress Note Anesthesia document: Postop Eval 1 completed: Yes
--- NOTE | 2024-12-15 14:17 | PCM.POSTANE2 ---
Anesthesia Postop Eval I Sum Postop Eval Completion status Anesthesia document: Postop Eval 1 completed: Yes Anesthesia Postop Eval I Summary Anesthesia Postop Eval I Summary: Anesthesia Postop Eval I: Assessment Summary Airway patent Yes 12/15/24 12:03 [email or web address] Spontaneous unlabored Yes 12/15/24 12:03 [email or web address] respirations Mental status Asleep 12/15/24 12:03 [email or web address] nausea No 12/15/24 12:03 [email or web address] Vomiting No 12/15/24 12:03 [email or web address] Anesthesia Postop Eval I: Fluid Summary Crystalloid volume administer 60 12/15/24 12:03 [email or web address] (ml) Colloids volume administered ( ml) Blood Product volume administered (ml) Total IV fluid infused 60 12/15/24 12:03 [email or web address] Anesthesia Postop Eval I: Summary Notes Anesthesia Complication No 12/15/24 12:03 [email or web address] Anesthesia Complication Comment: Post-operative progress note Anesthesia: Postop Eval II Evaluation Mental status: Awake Pain Level: 1 nausea: No Vomiting: No Complications Anesthesia Complication: No
== END 2024-12-15 12:38 | disposition home or self-care (01) ==
LOC: EN 09:55 → AC 09:56
PROVIDERS: Anesthesiology; PCP Internal Medicine; Referring Provider Internal Medicine; Visit Provider Surgery
PROC: 0DJ08ZZ Inspection of Upper Intestinal Tract, Via Natural or Artificial Opening Endoscopic (ICD-10-PCS; CPT 43235; principal; 2024-12-15 10:55)
DX: R10.13 Epigastric pain (principal); K80.20 Calculus of gallbladder without cholecystitis without obstruction; K29.70 Gastritis, unspecified, without bleeding; K31.89 Other diseases of stomach and duodenum; R10.11 Right upper quadrant pain; R11.2 Nausea with vomiting, unspecified
CPT/HCPCS: 43239; 81025; 88305; 88342; A4216; J2405

== ENCOUNTER 2025-02-02 09:55 | Day surgery (SDC) | payer OTHER, SELFPAY ==
[2025-02-02] VITALS (10 sets, daily range): BP systolic 107–121; BP diastolic 65–96; PULSE 69–86; RESP 14–16; TEMP 36.1–36.7; O2SAT 94–100; BMI 41.8
--- NOTE | 2025-02-02 | GALL_PTH ---
PATIENT: AVEL HANNA LOC: [facility] [place] U#:[id number] AGE/SX: 19/F ROOM: RE02/02/[address]: Dr. Juan Pablo Razo MD : 2005 BED: DIS: 02/02/2025 SPEC #: [id number] RECD: 02/02/25 07:31 STATUS: DEJAN ALICIA #: [id number] NIDA: 02/02/25 00:[address]: Juan Pablo Razo DEPT: SURGICAL PATHOLOGY RECD BY: Enoch Butts ENTERED: 02/03/25 07:32 SP TYPE: JULIAN RUIZ DR: Dr. Teresa Liriano MD Tissues: Gallbladder, NOS Procedures: Surgery Specimen Level III HEADER OPERATION: Laparoscopic, cholecystectomy with IOC PRE-OP DIAGNOSIS: Epigastric abdominal pain TISSUE SUBMITTED: Gallbladder MICROSCOPIC DIAGNOSIS GALLBLADDER, CHOLECYSTECTOMY: * Cholelithiasis. MICROSCOPIC DESCRIPTION Slides are reviewed. GROSS DESCRIPTION Received is one container labeled with the patient's name and designated gallbladder. The specimen consists of a gallbladder measuring 9 x 2.5 x 2 cm. The external surface is a smooth, glistening gravin -green. The cystic duct is closed with a plastic white clip. The clip is removed and the gallbladder is opened completely revealing multiple small yellow stones and green-black bile in the lumen. The mucosa is velvety, dark green, and without nodules, polyps or masses. Recovery Manager sections of the gallbladder and the cystic duct at margin of resection are submitted in one cassette. RS1. EH 02/03/25 CPT: 58378
--- NOTE | 2025-02-02 10:17 | EKG12_ITS ---
Test Reason : PREOP Blood Pressure : */* mmHG Vent. Rate : 82 BPM Atrial Rate : 82 BPM P-R Int : 142 ms QRS Dur : 80 ms QT Int : 388 ms P-R-T Axes : 33 -7 10 degrees QTcB Int : 453 ms Normal sinus rhythm with sinus arrhythmia Normal ECG No previous ECGs available Confirmed by Juan Pablo Colon ([id number]), newspaper or periodical editor MELANIE GILBERT ([id number]) on 02/03/2025 1:20:04 PM Referred By: Juan Pablo Razo Confirmed By: Juan Pablo Colon
[2025-02-02 10:20] LABS: Internal QC Validated? YES +Cl - CLEAR BKGD; Pregnancy, Urine Negative Negative
--- NOTE | 2025-02-02 10:30 | RAD_ITS ---
PROCEDURE: CHOLANGIOGRAM/ O R,INITIAL REASON FOR EXAM: Laparoscopic cholecystectomy. TECHNIQUE: An intraoperative cholangiogram was performed of the surgeon. Imaging was provided. COMPARISON: None FINDINGS: The intrahepatic and extrahepatic biliary ducts are unremarkable. No intraluminal filling defect is seen. There is free flow of contrast into the duodenum. RAD/Cholangiogram/ O R,Initial IMPRESSION: Unremarkable intraoperative cholangiogram. Reading Location: [facility]
[2025-02-02] MEDS: 0.9% Normal Saline (1000mL) 1,000 ML 15 ML IV (10:42)
--- NOTE | 2025-02-02 12:15 | PCM.PRE.AN2 ---
ASA Classification* ASA Classification ASA Classification: 3 Assessment & Plan Anesthesia* Anesthesia Assessment Anesthesia Assessment: Discussed sedation and/or anesthesia options, risks, benefits, and alternatives with patient/parents/legal guardian/POA. Questions invited. The patient/parents/legal guardian/POA seems to understand and agrees to proceed with anesthesia plan. Reviewed the physical assessment, medical history, allergy history and patient home medications list prior to surgery/procedure/anesthetic and documented any changes. Performed airway and anesthesia risk assessments. Anesthesia Type Anesthesia Type: General Anesthesia Focused Assessment* Temperature: 98.1 F Pulse Rate: 80 Blood Pressure: 107/65 Respiratory Rate: 14 Pulse Ox: 99 Airway Assessment Mouth opens: >3 cm Mallampati Score: II Focused Labs Anesthesia Preop lab: CBC WBC 13.8 K/mm3 (4.4-11.0) H 11/29/24 03:54 11/29/24 RBC 4.57 M/mm3 (4.2-5.4) 11/29/24 03:54 11/29/24 Hgb 13.6 g/dL (12.0-15.0) 11/29/24 03:54 11/29/24 Hct 40.6 % (37-47) 11/29/24 03:54 11/29/24 Plt Count 321 K/mm3 (150-450) 11/29/24 03:54 11/29/24 CHEMISTRY Potassium 3.7 mmol/L (3.5-5.1) 11/29/24 03:54 11/29/24 Sodium 139 mmol/L (136-145) 11/29/24 03:54 11/29/24 BUN 11 mg/dL (7-18) 11/29/24 03:54 11/29/24 Creatinine 0.90 mg/dL (0.55-1.02) 11/29/24 03:54 11/29/24 Glucose 118 mg/dL (74-106) H 11/29/24 03:54 11/29/24 TSH 1.28 uIU/mL (0.358-3.74) 02/11/24 11:32 02/11/24 COAG HCG, Quant < 1 mIU/mL (1-3) 02/11/24 11:32 02/11/24 Urine Test Negative Negative 02/02/25 10:05 02/02/25 Tst Clinic Negative 03/31/24 15:04 03/31/24 Pre-Assessment Diagnosis/Proposed Procedure Planned Operative Procedure(s): (N/A) Laparoscopic, Cholecystectomy with IOC Anesthesia History Anesthesia History - party supply specialist: Anesthesia History - party supply specialist Hx Hospitalization No 01/26/25 13:31 Any Problems With Anesthesia No 01/26/25 13:31 Cholinesterase deficiency No 01/26/25 13:31 You/Your Family Experience No 01/26/25 13:31 fever (hyperthermia) with Relationship Recent Exposure to Contagious No 02/02/25 10:16 Disease Does patient have nerve No 01/26/25 13:31 stimulator Patient instructed to have device shut off --Does patient have Pacemaker No 02/02/25 10:16 or ICD? When Was Last Pacemaker Check QUESTION #4 FULL TEXT: You/Your Family Experience fever (hyperthermia) with Anesthesia Last Oral Intake Last Oral intake: Last Oral Intake NPO since 23:15 02/02/25 10:16 Meds taken in AM with sips of No 02/02/25 10:16 water? Meds patient instructed to take am of surgery PONV PONV - party supply specialist: PONV - party supply specialist Female Yes 01/26/25 13:31 HX of Motion Sickness Yes 01/26/25 13:31 HX of N/V After Surgery Yes 01/26/25 13:31 Non-Smoker Yes 01/26/25 13:31 Duration of Surgery greater Yes 01/26/25 13:31 than 60 minutes Number of Risk Factors 5 01/26/25 13:31 PONV Score Severe Risk 01/26/25 13:31 Height & Weight Height & Weight: Anesthesia: Height & Weight Height 5 ft 5 in 02/02/25 10:16 Weight: 114 kg 02/02/25 10:16 Body Mass Index (BMI) 41.8 02/02/25 10:16 Respiratory Assessment Respiratory Assessment - party supply specialist: Respiratory Tract Infection Hx - party supply specialist Hx Respiratory Tract Infection No 01/26/25 13:31 STOP Sleep Apnea STOP Sleep Apnea - party supply specialist: STOP Sleep Apnea - party supply specialist Hx Hypertension No 01/26/25 13:31 Hx Sleep Apnea No 01/26/25 13:31 CPAP BIPAP Do you snore loudly (louder No 01/26/25 13:31 than talking or can be heard Do you often feel tired/ No 01/26/25 13:31 fatigued/ sleepy during daytime? Has anyone observed you stop No 01/26/25 13:31 breathing during sleep? STOP Results Negative 01/26/25 13:31 QUESTION #5 FULL TEXT : Do you snore loudly (louder than talking or can be heard through closed doors)? 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 Specify any problems Hx of Preganancy in last 3 No 01/26/25 13:31 Months Nurse Filling Out Transfusion JZOLLINGE 01/26/25 13:31 & Questions: Date: 01/26/25 01/26/25 13:31 Time: 13:34 01/26/25 13:31 Patient unable to answer at this time (ie. confused, unrespo /Reproduction History /Reproductive History - party supply specialist: /Reproductive Hx- party supply specialist Hx Now No 01/26/25 13:31 Gestational Age (in weeks): EDC: Hx Hx Para Hx Section SAB No 01/26/25 13:31 Active Medications Active Medications: Current Medications Generic Name Dose Route Start Last Admin Trade Name Freq PRN Reason Stop Dose Admin Sodium Chloride 1,000 mls @ 15 mls/hr 02/02/25 10:05 02/02/25 10:42 IV 02/07/25 23:24 15 mls/hr .Q48H CASSANDRA Administration Protocol PFSH Medical History Wears glasses Wears contact lenses Migraine headache Asthma Non-smoker Knee pain Home Medications ?Medication ?Instructions ?Recorded ?Last Taken ?Type norgestimate 0.25 mg-ethinyl 1 tab PO QDAY #84 tabs 06/30/24 Unknown Rx estradiol 35 mcg tablet (Sprintec (28)) pantoprazole 40 mg tablet,delayed 40 mg PO QDAY 3 weeks #21 tabs 12/26/24 Unknown Rx release ursodiol 300 mg capsule 300 mg PO BID gallstones 3 weeks 12/26/24 Unknown Rx #42 caps Allergy/AdvReac Type Severity Reaction Status Date / Time No Known Allergies Allergy Verified 02/02/25 10:15 Family History Mother High cholesterol Brother Asthma Allergies Severe allergy Grandmother Osteoporosis Heart disease Hypertension Myocardial infarction Colon cancer Amyloidosis Multiple myeloma Grandfather Heart disease High cholesterol Kidney disease CVA (cerebral vascular accident) Paraganglioma Cancer of cranial nerves Skin cancer Grandmother Breast cancer Cancer skin Osteoporosis Surgical History History of left knee surgery H/O right knee surgery Hx of tympanostomy tubes History of tonsillectomy and adenoidectomy History of repair of anterior cruciate ligament of left knee ear drum reconstruction Social History adopted: No household members: family current occupational status: employed 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
--- NOTE | 2025-02-02 13:05 | PCM.HP.BLA ---
History and Physical Date of Admission: 02/02/25 Date of Service: 01/21/25 MR#: [id number] Acct: [id number] Name: AVEL LEIVA Rep #: [id number] : 2005 Provider: Dr. Juan Pablo Razo MD Age/Sex: 19/F Location: [facility] Status: Signed Intake Vital Signs 12/15/2509:21 01/21/2508:10 Height 5 ft 5 in 5 ft 5 in Weight: 254 lb BMI 42.3 BP 117/74 Blood Pressure Location Rt brachial Position Sitting Respiration 18 Pulse 80 Pulse Source Monitor Temp 97.2 F L Temp Source Temporal Pulse Oximetry (%) 100 Oxygen Delivery Method room air Intake Visit Reasons: MED CHECK Chief Complaint: md check Accompanied by: Mother Allergies No Known Allergies Allergy (Verified 01/21/25 08:11) Medications ?Medication ?Instructions ?Recorded ?Confirmed ?Type norgestimate 0.25 mg-ethinyl 1 tab PO QDAY #84 tabs 06/30/24 01/21/25 Rx estradiol 35 mcg tablet (Sprintec (28)) pantoprazole 40 mg tablet,delayed 40 mg PO QDAY 3 weeks #21 tabs 12/26/24 01/21/25 Rx release ursodiol 300 mg capsule 300 mg PO BID 3 weeks #42 caps 12/26/24 01/21/25 Rx PFSH Medical History Wears glasses Wears contact lenses Migraine headache Asthma Non-smoker Knee pain Surgical History History of left knee surgery H/O right knee surgery Hx of tympanostomy tubes History of tonsillectomy and adenoidectomy History of repair of anterior cruciate ligament of left knee ear drum reconstruction Family History Mother High cholesterolBrother Asthma Allergies Severe allergyGrandmother Osteoporosis Heart disease Hypertension Myocardial infarction Colon cancer Amyloidosis Multiple myelomaGrandfather Heart disease High cholesterol Kidney disease CVA (cerebral vascular accident) Paraganglioma Cancer of cranial nerves Skin cancerGrandmother Breast cancer Cancer skin Osteoporosis Social History adopted: No household members: family current occupational status: employed 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 She presents today with her mother for follow-up of medication effectiveness after she was prescribed pantoprazole and ursodiol twice daily for treatment of bile reflux gastropathy. She initially states that she is going only 1 breakthrough attacks since her last visit but then after discussing further with her mother and reviewing her calendar she estimates that she has had 3 attacks since her consultation visit. She describes middle of the night attacks that are associated with nausea and vomiting, generally. She denies any association with fever. She estimates that at least a couple of the attacks occurred within 1 hour after eating. She otherwise states that these attacks seem to hit randomly and she has not noticed any food triggers. To this end, she denies enacting any dietary restrictions. At present she is free of symptoms and denies any pain in between these attacks. Below is recapitulated from patient's original consultation visit for ease of review: Patient is a 19-year-old female who presents for further evaluation of gallstones after a recent ER visit on 11/29/2024. They arrive to today's visit with their mother. Miss Leiva shares that she has had a couple of episodes of right upper quadrant pain with pain so bad that it led to subsequent vomiting in the last 1 month. She describes her vomitus as both bilious and containing food. She estimates that is approximately 12 hours after eating that she experiences the symptoms and it tends to awaken her out of sleep. She adds that the suspected food trigger is marinara sauce with cheesy bread. She denies tasting any acid upon awakening and denies any experience of heartburn. She does note that she generally sleeps rather propped up on a number of pillows at night. Her above symptoms have not led to any weight change. She also denies any bloating sensation. Patient underwent laboratory testing and right upper quadrant ultrasound with her ER evaluation. Laboratory testing revealed a mild leukocytosis but liver function testing is within normal limits. Ultrasound showed evidence of cholelithiasis but no other morphologic evidence of cholecystitis. Patient's mother asked whether or not a history of cholecystectomy in the family poses a significant risk for Miss Leiva to also have cholecystitis as she mentions her son and she herself have required cholecystectomy in the past. ROS General General: No weight change, appetite, fatigue, colon cancer, breast cancer or weakness HEENT HEENT: No difficulty swallowing, eye injury, eye surgery, swollen glands or hoarseness Endo Endocrine: No thyroid disease, diabetes mellitus, thyroid cancer, Hair loss, heat intolerance or cold intolerance Skin Skin: No rash or changing moles Musc Musculoskeletal: No back problems, arthritis, rheumatoid arthritis, gout or joint pain Cardio Cardiovascular: No murmur, pacemaker, heart disease, atrial fibrillation, high blood pressure, heart attack, heart stent, palpitations, shortness of breat with exertion or chest pain Psych Psychiatric: No depression, anxiety or hearing voices Resp Respiratory: No shortness of breath, No sleep apnea, No cough, No COPD, No asthma, No emphysema and No wheezing Gastro Gastrointestinal: Yes abdominal pain, Yes nausea or vomiting, No diarrhea, No constipation, No blood in stool, No acid reflux, No hemorrhoids, No ulcers, Yes gallbladder problem and No black,tarry stools Jim Hematologic: No blood thinners, No blood disorders, No bleeding, No anemia and No blood clots Neuro Neurologic: No system reviewed and no additional complaints, except as documented, No as per HPI, No abnormal gait, No abnormal hearing, No abnormal movements, No abnormal speech, No behavioral changes, No burning sensations, No confusion, No convulsions, No disequilibrium, No dizziness, No localized weakness, No frequent falls, No headache(s), No lack of coordination, No loss of vision, No memory loss, No numbness, No other visual disturbances, No radicular pain, No restless legs, No sensory deficit, No syncope, No tingling, No tremor(s), No weakness and No other Exam Const General: cooperative, comfortable, no acute distress and well developed Orientation: alert, awake and oriented x3 Resp Effort & Inspection: normal respiratory effort GI Other: Obese, nondistended, soft, nontender to palpation in the epigastrium and right upper quadrant Assessment and Plan Assessment and Plan (1) Epigastric abdominal pain: Status: Acute Comment: Both patient's present tenderness on exam and tenderness in the ER (as reported by ER attending who evaluated 11 days ago) was epigastric in character rather than right upper quadrant. With this consistency I am recommending proceeding with the EGD before further consideration of cholecystectomy. Update 01/21/2025: Patient describes 2-3 additional attacks of abdominal pain with associated nausea and vomiting. The timing of these attacks is suggestive of a gallbladder etiology given the timing from her last meal consumption as well as her middle of the night onset. However, it is interesting that she has no symptoms between attacks and her exam today is benign. Discussed potentially trying to alter her medication course for her bile reflux gastritis versus proceeding for cholecystectomy and confessed that it would be very difficult to tease out bile reflux gastritis from symptomatic cholelithiasis given that both symptoms would be expected with similar timing and it would only be through a process of illumination that we would be able to proceed. It is Miss Leiva's preference to proceed with surgery as she does not feel like the medication has been helpful. She has a upcoming spring break and sees this as an optimal time to undergo her operation. I find this reasonable and proceeded with a description of the operation as well as expected recovery. Hand drawings were made to illustrate the relevant anatomy. Plan: ? Plan for laparoscopic cholecystectomy with intraoperative cholangiography?ideally in another week and 1/2 to 2 weeks during patient's spring break. Planning for outpatient disposition but patient is advised that any positive findings of a cholangiogram could necessitate a brief inpatient stay I have examined the patient and the H&P has been reviewed. There are no clinical changes since date of exam. Procedure was reviewed in detail with patient and her parents. Post procedure expectations were also discussed. Neither patient nor her parents have any further questions. Therefore we will proceed for laparoscopic cholecystectomy with intraoperative cholangiogram as described in greater detail above. Consents were confirmed.
[2025-02-02] MEDS: Cefazolin 2 GM in Syringe IV (13:20)
--- NOTE | 2025-02-02 14:47 | OP.PCM_ITS ---
Procedures Digestive 40xxx-49xxx: [id number] Laparo cholecystectomy/graph Operative Report (Standard) Operative Information Date of Procedure: 02/02/25 Pre-Operative Diagnosis: Symptomatic cholelithiasis Post-Operative Diagnosis: Chronic cholecystitis Surgery/Procedure Performed: Laparoscopic cholecystectomy with intraoperative cholangiography modern greek studies professor: Yes Oil Field Laborer: Nadine Trinh Tasks completed by director of first impressions: Opening, Retracting and Other (Laparoscopic camera operation) Additional assistant broker?: Yes Additional Rotary Drill Rig Operator #2: Savanna Patton Tasks completed by assistant broker #2: Closing, Retracting and Other (laparoscopic camera operation) Type of Anesthesia: General/Supplemental RN Documented Start/Stop Times: Operation Date: 02/02/25 11:30 Case Time Into Pre-Op 02/02/25 09:59 Out of Pre-Op 02/02/25 13:02 Anesthesia Start 02/02/25 13:06 Into Room 02/02/25 13:06 Procedure Start 02/02/25 13:31 Procedure End 02/02/25 15:02 Anesthesia End 02/02/25 15:06 Out of Room 02/02/25 15:06 Into Recovery 02/02/25 15:07 Into Phase II Recovery 02/02/25 16:03 Out of Recovery 02/02/25 16:03 Procedure Start Time: 13:31 Procedure Stop Time: 15:02 Select all DRAINS/GRAFTS/IMPLANTS that apply: None Estimated Blood Loss: 10 Specimen collected: Yes Description of specimen(s) removed: Gallbladder Description of surgery: After proper identification in the preoperative holding area the patient was brought to the operating room where she was positioned supine on the operating room table. Preoperatively SCDs were connected and antibiotics were administered. General anesthesia was then induced. Patient's abdomen was prepped and draped in usual sterile fashion. A formal timeout was conducted to confirm both patient and the procedure. Procedure was begun with a supraumbilical incision which was extended deeply down to the level of the fascia. The fascia was elevated and incised, as well as the peritoneum. A finger sweep was performed to ensure there were no underlying adhesions and a 12 mm balloon trocar was inserted. Pneumoperitoneum was established at 15 mmHg. Three additional trocars (all 5 mm) were placed in the epigastrium and in the right upper quadrant. Inspection of the peritoneum revealed no inadvertent injury to the viscera below. The gallbladder was visualized with evidence of mild chronic inflammation. The gallbladder fundus was then grasped and elevated cephalad. Then, using careful dissection the peritoneum was opened and the structures of the hepatocystic triangle were delineated. Once the critical view of safety was obtained, the cystic duct was singly clipped and partially divided with a ductotomy. The proximal duct was milked of multiple gallstones and gallstone debris until it was clear enough to pass a cholangiocatheter. Using an Beasley Wade clamp, a cholangiocatheter was fed into the proximal segment of the cystic duct and clamped into place. Under fluoroscopy a cholangiogram was then obtained showing a standard length cystic duct flowing into a common bile duct with unobstructed antegrade flow of contrast into the duodenum. There was also retrograde flow through the common hepatic duct into the right and left hepatic ducts. Satisfied with this result, the cholangiocatheter was withdrawn and the proximal cystic duct was sealed with clips and the cystic duct was completely transected. The same process was used for the cystic artery. The gallbladder was then removed from the gallbladder fossa with the use of electrocautery. I had been impressed by the diminutive nature of the cystic artery entering the gallbladder at the usual location but found another significant branch of the artery coursin g parallel to the gallbladder fossa giving off minuscule branches towards the gallbladder. Uncertain whether or not this trunk was also giving off branches to the liver I chose to preserve it and secure the branches proceeding towards the gallbladder with either single clips or application of selective electrocautery using a [place] grasper. Additional selective electrocautery was used to obtain hemostasis over a few pinpoint areas of oozing in the gallbladder fossa. The gallbladder was placed in an Endo Catch bag and removed from the peritoneum. Morison's pouch was irrigated and the effluent was suctioned free of the peritoneum. Hemostasis was again confirmed. Pneumoperitoneum was evacuated and the fascia of the 12 mm port sites was closed with #1Vicryl in a [id number] fashion. A total of 30 mL of anesthetic was injected at the port sites for postoperative pain control. The skin of each port site was then closed in subcuticular fashion using 4-0 Monocryl. Steri- Strips and bandages were applied as dressings. Patient tolerated the procedure well without any apparent complications. On emergence from their anesthetic the patient was taken to PACU for ongoing recovery. Surgical Findings: ? Evidence of chronic cholecystitis with stone occluding the cystic duct ? Cholangiogram showing normal gallbladder anatomy and normal antegrade and retrograde filling of the common bile duct and common hepatic duct system, respectively Complications Complications: No Admit VTE Documentation VTE Mechan Device Prophylaxis: SCD's
[2025-02-02] MEDS: Bupiv/Epi 0.25% 30 ML Vial (14:48)
--- NOTE | 2025-02-02 15:00 | EX.PCM.DISCH ---
Discharge Instructions Diet Discharge Diet: No restrictions Activity Discharge Activity: May Not Drive (No driving while using narcotic pain medication) and May Shower (Postoperative day 1) May shower in (days): 2 Ice area for (Minutes): 20 Lifting Restrictions: No lifting greater than 15 pounds for 2 weeks after surgery Dressing / Incision Call your doctor if your incision/area has: Continuous Slow Oozing, Increased Pain/ Swelling, Increased Redness, Foul Smelling Discharge and Swelling at the incision site Call your doctor if you observe: Fever of 101 or Higher Remove Dressing in: 2 days (Please leave Steri-Strips intact until they fall off spontaneously or are taken off at your follow-up visit) Cleanse incision/area with: Soap & Water Follow Up Care Please Follow Up With: Juan Pablo Razo MD When: 7-10days postop Test Results: Test results from this visit will be discussed in further detail at your follow-up appointment, if applicable. Discharge Plan Admission Primary Reason for Your Visit: Gallbladder surgery Attending Provider: Juan Pablo Razo Primary Care Provider: Teresa Liriano Instructions Print Language: Icelandic Discharge Orders/Prescriptions Prescriptions: New oxycodone 5 mg tablet 5 mg PO Q6H PRN (Reason: pain) 3 Days Qty: 14 0RF Continued norgestimate-ethinyl estradiol [Sprintec (28)] 0.25-35 mg-mcg tablet 1 tab PO QDAY Qty: 84 4RF pantoprazole 40 mg tablet,delayed release (DR/EC) 40 mg PO QDAY 21 Days Qty: 21 1RF Discontinued ursodiol 300 mg capsule 300 mg PO BID 21 Days Qty: 42 1RF Rx Instructions: take one capsule by mouth twice daily Referrals / Follow Up: Teresa Liriano MD [Primary Care Provider] - Disposition Disposition (needs filled in before D/C Order can be placed): Home, Self Care
--- NOTE | 2025-02-02 15:15 | PCM.POST.ANE ---
Anesthesia: Postop Eval I Current Vital Signs Temperature: 97.0 F Pulse Rate: 86 Blood Pressure: 115/73 Respiratory Rate: 16 Pulse Ox: 98 Oxygen Delivery Method: Nasal Cannula Oxygen Flow Rate (L/min): 4 Assessment Airway patent: Yes Spontaneous unlabored respirations: Yes Mental status: Awake and Calm nausea: No Vomiting: No Anesthesia Complication: No Fluid Hydration Crystalloid volume administer (ml): 1,400 Total IV fluid infused: 1,400 Progress Note Anesthesia document: Postop Eval 1 completed: Yes
--- NOTE | 2025-02-02 15:18 | POSTOPAN2_ITS ---
Anesthesia Postop Eval I Sum Postop Eval Completion status Anesthesia document: Postop Eval 1 completed: Yes Anesthesia Postop Eval I Summary Anesthesia Postop Eval I Summary: Anesthesia Postop Eval I: Assessment Summary Airway patent Yes 02/02/25 15:16 [email or web address] Spontaneous unlabored Yes 02/02/25 15:16 [email or web address] respirations Mental status Awake,Calm 02/02/25 15:16 [email or web address] nausea No 02/02/25 15:16 [email or web address] Vomiting No 02/02/25 15:16 [email or web address] Anesthesia Postop Eval I: Fluid Summary Crystalloid volume administer 1,400 02/02/25 15:16 [email or web address] (ml) Colloids volume administered ( ml) Blood Product volume administered (ml) Total IV fluid infused 1,400 02/02/25 15:16 [email or web address] Anesthesia Postop Eval I: Summary Notes Anesthesia Complication No 02/02/25 15:16 [email or web address] Anesthesia Complication Comment: Post-operative progress note Anesthesia: Postop Eval II Evaluation Mental status: Awake Pain Level: 0 nausea: No Vomiting: No
--- NOTE | 2025-02-02 15:18 | PCM.POSTANE2 ---
Anesthesia Postop Eval I Sum Postop Eval Completion status Anesthesia document: Postop Eval 1 completed: Yes Anesthesia Postop Eval I Summary Anesthesia Postop Eval I Summary: Anesthesia Postop Eval I: Assessment Summary Airway patent Yes 02/02/25 15:16 STRIPPER AND OPAQUER [email or web address] Spontaneous unlabored Yes 02/02/25 15:16 STRIPPER AND OPAQUER [email or web address] respirations Mental status Awake,Calm 02/02/25 15:16 STRIPPER AND OPAQUER [email or web address] nausea No 02/02/25 15:16 STRIPPER AND OPAQUER [email or web address] Vomiting No 02/02/25 15:16 STRIPPER AND OPAQUER [email or web address] Anesthesia Postop Eval I: Fluid Summary Crystalloid volume administer 1,400 02/02/25 15:16 STRIPPER AND OPAQUER [email or web address] (ml) Colloids volume administered ( ml) Blood Product volume administered (ml) Total IV fluid infused 1,400 02/02/25 15:16 STRIPPER AND OPAQUER [email or web address] Anesthesia Postop Eval I: Summary Notes Anesthesia Complication No 02/02/25 15:16 STRIPPER AND OPAQUER [email or web address] Anesthesia Complication Comment: Post-operative progress note Anesthesia: Postop Eval II Evaluation Mental status: Awake Pain Level: 0 nausea: No Vomiting: No
[2025-02-02] MEDS: Ketorolac 30 MG/ML Syringe IV (16:39)
== END 2025-02-02 17:08 | disposition home or self-care (01) ==
LOC: SDC 09:55 → AC 09:58
PROVIDERS: Anesthesiology; PCP Internal Medicine; Referring Provider Surgery; Visit Provider Surgery
PROC: (CPT 47610; principal; 2025-02-02 11:10)
DX: K80.10 Calculus of gallbladder with chronic cholecystitis without obstruction (principal); K29.60 Other gastritis without bleeding; Z79.899 Other long term (current) drug therapy
CPT/HCPCS: 47563; 00790; 74300; 76000; 81025; 88304; 93005; A4216; J2405